=== PATIENT | female | born 1970 | race Caucasian/White ===

== ENCOUNTER 2018-09-08 16:19 | Observation (INO) | payer OTHER ==
[2018-09-08 16:19] VITALS: BMI 27.4
--- NOTE | 2018-09-08 16:35 | ED PDOC ---
Arrival/HPI - General Historian: Patient - History of Present Illness Narrative History of Present Illness (Text): 09/08/18 16:24 48 y/o female, pmh including hld, nkda, c/o lt. sided chest pain/palpitation/shortness of breath on and off x 1 week. Pt. stated that she has on and off palpitation x 1 week, chest pain with shortness of breath started today, radiating to the lt. upper extremity and back, no numbness or tingling, no headache or night sweat, no rash, no dizziness, no other medical or psychological complaints. Past Medical History - Provider Review Nursing Documentation Reviewed: Yes - Infectious Disease Hx of Infectious Diseases: None - Tetanus Immunization Tetanus Immunization: Unknown - Cardiac Hx Cardiac Disorders: Yes - Pulmonary Hx Respiratory Disorders: No - Neurological Hx Neurological Disorder: No - HEENT Hx HEENT Disorder: No - Renal Hx Renal Disorder: No - Endocrine/Metabolic Hx Endocrine Disorders: No - Hematological/Oncological Hx Blood Disorders: No - Integumentary Hx Dermatological Disorder: No - Musculoskeletal/Rheumatological Hx Musculoskeletal Disorders: No - Gastrointestinal Hx Gastrointestinal Disorders: No - Genitourinary/Gynecological Hx Genitourinary Disorders: No - Psychiatric Hx Psychophysiologic Disorder: No Hx Depression: No Hx Emotional Abuse: No Hx Physical Abuse: No Hx Substance Use: No - Surgical History Hx Cholecystectomy: Yes - Suicidal Assessment Feels Threatened In Home Enviroment: No Family/Social History - Physician Review Nursing Documentation Reviewed: Yes Family/Social History: Unknown Family HX Smoking Status: Never Smoked Hx Alcohol Use: No Hx Substance Use: No Hx Substance Use Treatment: No Allergies/Home Meds Allergies/Adverse Reactions: Allergies No Known Allergies Allergy (Verified 10/25/14 01:40) Review of Systems - Review of Systems Constitutional: absent: Fatigue, Fevers Eyes: absent: Vision Changes ENT: absent: Hearing Changes Respiratory: SOB, Cough. absent: Sputum Cardiovascular: Chest Pain Gastrointestinal: absent: Abdominal Pain, Nausea, Vomiting Musculoskeletal: absent: Arthralgias, Back Pain Skin: absent: Rash, Pruritis Neurological: absent: Headache, Dizziness Psychiatric: absent: Anxiety, Depression, Suicidal Ideation Physical Exam Vital Signs Reviewed: Yes Temperature: Afebrile Blood Pressure: Normal Pulse: Regular Respiratory Rate: Normal Appearance: Positive for: Well-Appearing, Non-Toxic, Comfortable Pain Distress: Mild Mental Status: Positive for: Alert and Oriented X 3 - Systems Exam Head: Present: Atraumatic, Normocephalic Pupils: Present: PERRL Extroacular Muscles: Present: EOMI Conjunctiva: Present: Normal Mouth: Present: Moist Mucous Membranes Neck: Present: Normal Range of Motion Respiratory/Chest: Present: Clear to Auscultation, Good Air Exchange. No: Respiratory Distress, Accessory Muscle Use, Wheezes, Decreased Breath Sounds, Rales, Retracting, Rhonchi, Tachypneic, Tender to Palpation Cardiovascular: Present: Regular Rate and Rhythm, Normal S1, S2. No: Murmurs Abdomen: No: Tenderness, Distention, Peritoneal Signs Back: Present: Normal Inspection. No: CVA Tenderness, Midline Tenderness, Paraspinal Tenderness Upper Extremity: Present: Normal Inspection. No: Cyanosis, Edema Lower Extremity: Present: Normal Inspection. No: Edema Neurological: Present: GCS=15, CN II-XII Intact, Speech Normal, Motor Func Grossly Intact, Gait Normal, Memory Normal Skin: Present: Warm, Dry, Normal Color. No: Rashes Psychiatric: Present: Alert, Oriented x 3, Normal Insight, Normal Concentration Medical Decision Making ED Course and Treatment: 09/08/18 16:45 -labs -ekg -CTA -satellite project site monitor -Observe and reassess 09/08/18 19:47 -EKG: NSR @ 96 BPM, no ST elevation or depression, no T wave inversion. -CTA No large central or segmental pulmonary embolus identified. -Labs are non-significant -Mg with normal limit -BNP within normal limit -TSH and T4 within normal limit -Trop is negative -UA show no UTI -UDS show no acute drug abuse -HEARTS score is Moderate -Pt. would need 24 hours trop, still has chest pain mildly with some relief from aspirin, morphine/oxygen/nitro ordered. -I explained to the patient and she agreed to be admitted. 09/08/18 20:05 -I spoke to the director global medical affairs and night admitting team Dr. Bejarano, discussed about the case/labs/radiology result, agreed to come to admit and follow up the care. - RAD Interpretation Radiology Orders: Date of service: 09/08/2018 CTA chest PE protocol Indication: Chest pain/SOB Technique: Contiguous axial images were obtained through the chest with intravenous contrast enhancement. Sagittal and coronal reconstructions were generated and reviewed. This CT exam was performed using 1 or more of the following dose reduction techniques: Automated exposure control, adjustment of the MAA and/or kV according to patient size, and/or use of iterative reconstruction technique. IV contrast: 100 mL Omnipaque 350 Radiation dose (DLP): 335.49 MGy-cm. Comparison: None available Findings: Visualized portions of the inferior thyroid gland appear unremarkable. The mediastinal and hilar vascular structures appear within normal limits. The heart appears within normal limits of size. No large central or segmental pulmonary embolus evident. No focal consolidation. No pleural effusion. No pneumothorax. No suspicious pulmonary nodules measuring greater than 5 mm. Cholecystectomy clips. Limited visualization of the included upper abdomen appear otherwise grossly unremarkable. No acute osseous abnormality is detected. Impression: No large central or segmental pulmonary embolus identified. Environmental Property Assessor: Radiologist - EKG Interpretation EKG Interpretation (Text): 09/08/18 16:47 -EKG: NSR @ 96 BPM, no ST elevation or depression, no T wave inversion. Interpreted by ED Physician: Yes Type: 12 lead EKG - PA / [employer]' ADVISORY SERVICE LIBRARIAN / Resident Statement MD/DO has reviewed & agrees with the documentation as recorded. Disposition/Present on Arrival - Present on Arrival Any Indicators Present on Arrival: No History of DVT/PE: No History of Uncontrolled Diabetes: No Urinary Catheter: No History of Decub. Ulcer: No History Surgical Site Infection Following: None - Disposition Have Diagnosis and Disposition been Completed?: Yes Diagnosis: Chest pain, Palpitation Disposition: HOSPITALIZED Disposition Time: 19:52 Patient Plan: Admission, Observation, Telemetry Patient Problems: Current Active Problems Problem Status Onset Chest pain Acute Palpitation Acute Condition: STABLE Discharge Instructions (ExitCare): Chest Pain (ED)
[2018-09-08 17:19] LABS: URINE BILIRUBIN NEGATIVE (NEGATIVE); URINE BLOOD NEGATIVE (NEGATIVE); URINE GLUCOSE (UA) NEGATIVE (NEGATIVE); URINE LEUKOCYTE ESTERASE NEGATIVE Leu/uL (NEGATIVE); URINE PROTEIN NEGATIVE mg/dL (<30 mg/dL); URINE UROBILINOGEN 0.2 E.U./dL (<1 E.U./dL)
[2018-09-08 17:20] LABS: URINE APPEARANCE CLEAR (CLEAR); URINE COLOR YELLOW (YELLOW)
[2018-09-08 17:22] LABS: BASO # 0.02 K/mm3 (0.0-2.0); BASO % 0.3 % (0.0-3.0); EOS # 0.1 (0.0-0.7); EOS % 1.4 % (1.5-5.0); GRAN # 3.33 (1.4-6.5); GRAN % 53.1 % (50.0-68.0); HEMOGLOBIN 13.2 g/dL (12.0-16.0); LYMPH # 2.3 (1.2-3.4); LYMPH % 36.8 % (22.0-35.0); MEAN CELL VOLUME 83.1 fl (80.0-105.0); MEAN CORPUSCULAR HEMOGLOBIN 28.2 pg (25.0-35.0); MEAN CORPUSCULAR HGB CONC 33.9 g/dl (31.0-37.0); MEAN PLATELET VOLUME 9.8 fl (7.0-11.0); MONO # 0.5 (0.1-0.6); MONO % 8.4 % (1.0-6.0); RBC 4.68 10^6/uL (3.5-6.1); RED CELL DISTRIBUTION WIDTH 12.8 % (11.5-14.5); WHITE BLOOD COUNT 6.3 10^3/uL (4.5-11.0)
[2018-09-08 17:26] LABS: ALB/GLOB RATIO 1.3 (1.1-1.8); ALT/SGPT 27 U/L (7-56); AST/SGOT 31 U/L (14-36); BLOOD UREA NITROGEN 10 mg/dL (7-21); CALCIUM 9.2 mg/dL (8.4-10.5); GFR NON-AFRICAN AMERICAN > 60
[2018-09-08 17:38] LABS: BARBITURATES, UR NEGATIVE (NEGATIVE); BENZODIAZEPINES, UR NEGATIVE (NEGATIVE); OPIATES, UR NEGATIVE (NEGATIVE); PHENCYCLIDINE, UR NEGATIVE (NEGATIVE)
[2018-09-08 17:38] LABS: B-TYPE NATRIURETIC PEPTIDE 22.4 pg/mL (0-450); TROPONIN I < 0.01 ng/mL
[2018-09-08 17:48] LABS: FREE T4 0.96 ng/dL (0.78-2.19)
[2018-09-08] MEDS ORDERED: Iohexol 300 100 ML IJ ONE (18:16)
--- NOTE | 2018-09-08 19:02 | CT ---
Date of service: 09/08/2018 CTA chest PE protocol Indication: Chest pain/SOB Technique: Contiguous axial images were obtained through the chest with intravenous contrast enhancement. Sagittal and coronal reconstructions were generated and reviewed. This CT exam was performed using 1 or more of the following dose reduction techniques: Automated exposure control, adjustment of the MAA and/or kV according to patient size, and/or use of iterative reconstruction technique. IV contrast: 100 mL Omnipaque 350 Radiation dose (DLP): 335.49 MGy-cm. Comparison: None available Findings: Visualized portions of the inferior thyroid gland appear unremarkable. The mediastinal and hilar vascular structures appear within normal limits. The heart appears within normal limits of size. No large central or segmental pulmonary embolus evident. No focal consolidation. No pleural effusion. No pneumothorax. No suspicious pulmonary nodules measuring greater than 5 mm. Cholecystectomy clips. Limited visualization of the included upper abdomen appear otherwise grossly unremarkable. No acute osseous abnormality is detected. Impression: No large central or segmental pulmonary embolus identified.
[2018-09-08] MEDS ORDERED: Morphine 2 mg/ml ISec IVP STA (19:51)
[2018-09-08 21:35] VITALS: O2SAT 98
[2018-09-09] MEDS: Sodium Chloride 0.9% 1,000 ML IV SCH ×3 (00:40→10:20)
--- NOTE | 2018-09-09 03:11 | CP.PCM.HP ---
<GregNarinder - Last Filed: 09/10/18 20:14> History of Present Illness - History of Present Illness History of Present Illness: Narinder Garza, PGY-1 Medicine H&P Note for Dr. Bejarano: CC: L sided chest pain x 7 days Pt is a 48 yo F with pmhx of HLD who presents to the ED for complaints of L sided chest pain that has been present for 7 days. She reports that about 7 days ago she was sleeping when she was woken up to feelings of chest pain and palpitations. She states that the chest pain was rated at a 6/10 and radiates to both of her shoulder and upper back and states that it does not worsen with exertion. She states that this is the first time this has ever happened to her. She states that these episodes last about 10-15 minutes. She states that she had bouts of nausea with the episodes of chest pain and palpitations. She states that these episodes are self-limiting. She denies any recent stress at work, emotional stress or anxiety. She also currently denies any fevers, chills, headaches, lightheadedness, dizziness, SOB, cough, leg swelling, abd pain, n/v, c/d, or dysuria. She admits to continued chest pain and palpitations. Pmhx: HLD Pshx: Heather 15 years ago Meds: Denies, stopped taking her statin 1 year ago All: Nkda Soc: Denies tobacco use, etoh or illicit drug use Fam: Non- contributory PMD: Denies Pharm: [facility] in [place] Present on Admission - Present on Admission Any Indicators Present on Admission: No Review of Systems - Review of Systems Review of Systems: 12 point ROS reviewed and negative except noted in HPI above. Past Patient History - Infectious Disease Hx of Infectious Diseases: None - Tetanus Immunizations Tetanus Immunization: Unknown - Past Social History Smoking Status: Never Smoked - CARDIAC Hx Hypercholesterolemia: Yes - PULMONARY Hx Respiratory Disorders: No - NEUROLOGICAL Hx Neurological Disorder: No - HEENT Hx HEENT Problems: No - RENAL Hx Chronic Kidney Disease: No - ENDOCRINE/METABOLIC Hx Endocrine Disorders: No - HEMATOLOGICAL/ONCOLOGICAL Hx Blood Disorders: No - INTEGUMENTARY Hx Dermatological Problems: No - MUSCULOSKELETAL/RHEUMATOLOGICAL Hx Falls: No - GASTROINTESTINAL Hx Gastrointestinal Disorders: No Hx Gall Bladder Disease: Yes (Cholecystectomy) - GENITOURINARY/GYNECOLOGICAL Hx Genitourinary Disorders: No - PSYCHIATRIC Hx Psychophysiologic Disorder: No Hx Depression: No Hx Emotional Abuse: No Hx Physical Abuse: No Hx Substance Use: No - SURGICAL HISTORY Hx Cholecystectomy: Yes - ANESTHESIA Hx Anesthesia: Yes Hx Anesthesia Reactions: No Hx Malignant Hyperthermia: No Meds Allergies/Adverse Reactions: Allergies Allergy/AdvReac Type Severity Reaction Status Date / Time No Known Allergies Allergy Verified 10/25/14 01:40 Physical Exam - Constitutional Appears: Well, Non-toxic, No Acute Distress - Head Exam Head Exam: ATRAUMATIC, NORMAL INSPECTION, NORMOCEPHALIC - Eye Exam Eye Exam: EOMI, Normal appearance, PERRL - Respiratory Exam Respiratory Exam: Clear to Auscultation Bilateral, NORMAL BREATHING PATTERN. absent: Accessory Muscle Use, Decreased Breath Sounds, Prolonged Expiratory Phase, Rales, Rhonchi, Wheezes, Respiratory Distress, Stridor - Cardiovascular Exam Cardiovascular Exam: RRR, +S1, +S2. absent: Gallop, Rubs, Systolic Murmur - GI/Abdominal Exam GI & Abdominal Exam: Normal Bowel Sounds, Soft. absent: Distended, Firm, Guarding, Tenderness - Extremities Exam Extremities exam: Positive for: full ROM, normal capillary refill, normal inspec tion, pedal pulses present. Negative for: pedal edema, tenderness - Back Exam Back exam: NORMAL INSPECTION. absent: CVA tenderness (L), CVA tenderness (R) - Neurological Exam Neurological exam: Alert, Oriented x3 - Psychiatric Exam Psychiatric exam: Normal Affect, Normal Mood - Skin Skin Exam: Dry, Intact, Warm Results - Vital Signs Recent Vital Signs: Last Vital Signs Temp 98.1 F 09/08/18 22:45 Pulse 69 09/09/18 01:35 Resp 20 09/09/18 00:08 BP 117/67 09/08/18 22:45 Pulse Ox 98 09/08/18 22:45 - Labs Result Diagrams: 09/08/18 16:45 09/08/18 16:45 Labs: Laboratory Results - last 24 hr 09/08/18 09/08/18 09/08/18 16:45 16:45 16:45 WBC 6.3 RBC 4.68 Hgb 13.2 Hct 38.9 MCV 83.1 MCH 28.2 MCHC 33.9 RDW 12.8 Plt Count 267 MPV 9.8 Gran % 53.1 Lymph % (Auto) 36.8 H [place] % (Auto) 8.4 H Eos % (Auto) 1.4 L Baso % (Auto) 0.3 Gran # 3.33 Lymph # (Auto) 2.3 [place] # (Auto) 0.5 Eos # (Auto) 0.1 Baso # (Auto) 0.02 D-Dimer, Quantitative Sodium 139 Potassium 3.7 Chloride 106 Carbon Dioxide 26 Anion Gap 11 BUN 10 Creatinine 0.7 Est GFR ( Amer) > 60 Est GFR (Non-Af Amer) > 60 Random Glucose 102 Calcium 9.2 Magnesium 1.9 Total Bilirubin 0.3 AST 31 ALT 27 Alkaline Phosphatase 59 Lactate Dehydrogenase 373 Total Creatine Kinase 55 Troponin I < 0.01 NT-Pro-B Natriuret Pep 22.4 Total Protein 7.1 Albumin 4.0 Globulin 3.1 Albumin/Globulin Ratio 1.3 Free T4 0.96 TSH 3rd Generation 2.87 Urine Color Urine Appearance Urine pH Ur Specific [place] Urine Protein Urine Glucose (UA) Urine Ketones Urine Blood Urine Nitrate Urine Bilirubin Urine Urobilinogen Ur Leukocyte Esterase Urine Opiates Screen Urine Methadone Screen Ur Barbiturates Screen Ur Phencyclidine Scrn Ur Amphetamines Screen U Benzodiazepines Scrn U Oth Cocaine Metabols U Cannabinoids Screen 09/08/18 09/08/18 09/08/18 16:45 16:50 16:50 WBC RBC Hgb Hct MCV MCH MCHC RDW Plt Count MPV Gran % Lymph % (Auto) [place] % (Auto) Eos % (Auto) Baso % (Auto) Gran # Lymph # (Auto) [place] # (Auto) Eos # (Auto) Baso # (Auto) D-Dimer, Quantitative < 200 Sodium Potassium Chloride Carbon Dioxide Anion Gap BUN Creatinine Est GFR ( Amer) Est GFR (Non-Af Amer) Random Glucose Calcium Magnesium Total Bilirubin AST ALT Alkaline Phosphatase Lactate Dehydrogenase Total Creatine Kinase Troponin I NT-Pro-B Natriuret Pep Total Protein Albumin Globulin Albumin/Globulin Ratio Free T4 TSH 3rd Generation Urine Color Yellow Urine Appearance Clear Urine pH 6.0 Ur Specific [place] >= 1.030 Urine Protein Negative Urine Glucose (UA) Negative Urine Ketones Negative Urine Blood Negative Urine Nitrate Negative Urine Bilirubin Negative Urine Urobilinogen 0.2 Ur Leukocyte Esterase Negative Urine Opiates Screen Negative Urine Methadone Screen Negative Ur Barbiturates Screen Negative Ur Phencyclidine Scrn Negative Ur Amphetamines Screen Negative U Benzodiazepines Scrn Negative U Oth Cocaine Metabols Negative U Cannabinoids Screen Negative 09/09/18 00:50 WBC RBC Hgb Hct MCV MCH MCHC RDW Plt Count MPV Gran % Lymph % (Auto) [place] % (Auto) Eos % (Auto) Baso % (Auto) Gran # Lymph # (Auto) [place] # (Auto) Eos # (Auto) Baso # (Auto) D-Dimer, Quantitative Sodium Potassium Chloride Carbon Dioxide Anion Gap BUN Creatinine Est GFR ( Amer) Est GFR (Non-Af Amer) Random Glucose Calcium Magnesium Total Bilirubin AST ALT Alkaline Phosphatase Lactate Dehydrogenase Total Creatine Kinase Troponin I < 0.01 NT-Pro-B Natriuret Pep Total Protein Albumin Globulin Albumin/Globulin Ratio Free T4 TSH 3rd Generation Urine Color Urine Appearance Urine pH Ur Specific [place] Urine Protein Urine Glucose (UA) Urine Ketones Urine Blood Urine Nitrate Urine Bilirubin Urine Urobilinogen Ur Leukocyte Esterase Urine Opiates Screen Urine Methadone Screen Ur Barbiturates Screen Ur Phencyclidine Scrn Ur Amphetamines Screen U Benzodiazepines Scrn U Oth Cocaine Metabols U Cannabinoids Screen Assessment & Plan - Assessment and Plan (Free Text) Assessment: Pt is a 48 yo F with pmhx of HLD who presents to the ED for complaints of L sided chest pain that has been present for 7 days. EKG shows NSR @ 96 bpm with no noted ST-T wave depressions or elevations. Plan: 1. CP r/o ACS: - Inital trops (-), trend trops x2 - F/u AM EKG - TSH and Free T4 wnl - f/u lipid profile - Utox (-) - D-dimer was <200 and CTA showed no PE - Cardio consulted - Dr. Salomon - 2D echo - NS @ 125/hr - HHD - Asa 81 qd - HbgA1c 2. Hx of HLD: - f/u lipid profile 3. PPx: - GI: Protonix 40qd - DVT: SCDs Case seen and discussed with Dr. Carlee Garza, PGY-1 <Black Bejarano - Last Filed: 09/10/18 20:44> Results - Vital Signs Recent Vital Signs: Last Vital Signs Temp 97.9 F 09/09/18 11:53 Pulse 81 09/09/18 11:53 Resp 20 09/09/18 11:53 BP 104/68 09/09/18 11:53 Pulse Ox 98 09/09/18 05:59 - Labs Result Diagrams: 09/09/18 06:30 09/09/18 06:30 Attending/Attestation - Attestation I have personally seen and examined this patient.: Yes I have fully participated in the care of the patient.: Yes I have reviewed all pertinent clinical information: Yes
[2018-09-09] MEDS ORDERED: Pantoprazole 40 mg EC Tab PO SCH (06:00)
[2018-09-09 07:18] LABS: BASO # 0.02 K/mm3 (0.0-2.0); BASO % 0.3 % (0.0-3.0); EOS # 0.1 (0.0-0.7); GRAN # 2.88 (1.4-6.5); GRAN % 45.4 % (50.0-68.0); HEMOGLOBIN 12.7 g/dL (12.0-16.0); LYMPH # 2.7 (1.2-3.4); LYMPH % 42.7 % (22.0-35.0); MEAN CELL VOLUME 84.1 fl (80.0-105.0); MEAN CORPUSCULAR HEMOGLOBIN 27.6 pg (25.0-35.0); MEAN CORPUSCULAR HGB CONC 32.8 g/dl (31.0-37.0); MEAN PLATELET VOLUME 9.8 fl (7.0-11.0); MONO # 0.6 (0.1-0.6); MONO % 9.6 % (1.0-6.0); RBC 4.6 10^6/uL (3.5-6.1); RED CELL DISTRIBUTION WIDTH 13.1 % (11.5-14.5); WHITE BLOOD COUNT 6.4 10^3/uL (4.5-11.0)
[2018-09-09 07:44] LABS: TROPONIN I < 0.01 ng/mL
[2018-09-09 08:08] LABS: ALB/GLOB RATIO 1.2 (1.1-1.8); ALBUMIN 3.5 g/dL (3.0-4.8); ALT/SGPT 27 U/L (7-56); AST/SGOT 28 U/L (14-36); BLOOD UREA NITROGEN 6 mg/dL (7-21); CALCIUM 8.5 mg/dL (8.4-10.5); GFR NON-AFRICAN AMERICAN > 60
[2018-09-09 08:47] LABS: HDL CHOLESTEROL 36 mg/dL (29-60)
[2018-09-09 08:58] LABS: LDL CHOLESTEROL 259 mg/dL (0-129)
--- NOTE | 2018-09-09 09:16 | CARD ---
APPROVED REPORT Date of service: 09/08/2018 EKG Measurement Heart [id number] <Conclusion> Normal sinus rhythm NSSTW changes Prolonged QTc
--- NOTE | 2018-09-09 09:39 | CARD ---
APPROVED REPORT Date of service: 09/09/2018 EKG Measurement Heart [id number] <Conclusion> Normal sinus rhythm NSSTW changes
[2018-09-09 11:54] VITALS: BP 104/68; PULSE 81; RESP 20; TEMP 97.9
--- NOTE | 2018-09-09 14:53 | CP.PCM.DIS ---
<Austin Edgar - Last Filed: 09/09/18 14:41> Provider - Provider Date of Admission: 09/08/18 20:04 Attending physician: Eduardo Pryor MD Consults: 09/09/18 00:32 Cardiology Consult Routine Comment: Consulting Provider: Juancho Salomon Consulting Physician: Juancho Salomon Reason for Consult: Chest pain r/o acs Time Spent in preparation of Discharge (in minutes): 45 Hospital Course - Lab Results Lab Results: Most Recent Lab Values WBC 6.4 10^3/uL (4.5-11.0) 09/09/18 06:30 RBC 4.60 10^6/uL (3.5-6.1) 09/09/18 06:30 Hgb 12.7 g/dL (12.0-16.0) 09/09/18 06:30 Hct 38.7 % (36.0-48.0) 09/09/18 06:30 MCV 84.1 fl (80.0-105.0) 09/09/18 06:30 MCH 27.6 pg (25.0-35.0) 09/09/18 06:30 MCHC 32.8 g/dl (31.0-37.0) 09/09/18 06:30 RDW 13.1 % (11.5-14.5) 09/09/18 06:30 Plt Count 261 10^3/uL (120.0-450.0) 09/09/18 06:30 MPV 9.8 fl (7.0-11.0) 09/09/18 06:30 Gran % 45.4 % (50.0-68.0) L 09/09/18 06:30 Lymph % (Auto) 42.7 % (22.0-35.0) H 09/09/18 06:30 [place] % (Auto) 9.6 % (1.0-6.0) H 09/09/18 06:30 Eos % (Auto) 2.0 % (1.5-5.0) 09/09/18 06:30 Baso % (Auto) 0.3 % (0.0-3.0) 09/09/18 06:30 Gran # 2.88 (1.4-6.5) 09/09/18 06:30 Lymph # (Auto) 2.7 (1.2-3.4) 09/09/18 06:30 [place] # (Auto) 0.6 (0.1-0.6) 09/09/18 06:30 Eos # (Auto) 0.1 (0.0-0.7) 09/09/18 06:30 Baso # (Auto) 0.02 K/mm3 (0.0-2.0) 09/09/18 06:30 D-Dimer, Quantitative < 200 ng/mlDDU (0-243) 09/08/18 16:45 Sodium 138 mmol/L (132-148) 09/09/18 06:30 Potassium 3.6 mmol/L (3.6-5.0) 09/09/18 06:30 Chloride 108 mmol/L (98-107) H 09/09/18 06:30 Carbon Dioxide 26 mmol/L (21-33) 09/09/18 06:30 Anion Gap 7 (10-20) L 09/09/18 06:30 BUN 6 mg/dL (7-21) L 09/09/18 06:30 Creatinine 0.7 mg/dl (0.7-1.2) 09/09/18 06:30 Est GFR ( Amer) > 60 09/09/18 06:30 Est GFR (Non-Af Amer) > 60 09/09/18 06:30 Random Glucose 89 mg/dL (70-110) 09/09/18 06:30 Hemoglobin A1c 4.9 % (4.2-6.5) 09/09/18 06:30 Calcium 8.5 mg/dL (8.4-10.5) 09/09/18 06:30 Phosphorus 3.0 mg/dL (2.5-4.5) 09/09/18 06:30 Magnesium 1.9 mg/dL (1.7-2.2) 09/09/18 06:30 Total Bilirubin 0.4 mg/dL (0.2-1.3) 09/09/18 06:30 AST 28 U/L (14-36) 09/09/18 06:30 ALT 27 U/L (7-56) 09/09/18 06:30 Alkaline Phosphatase 57 U/L (38-126) 09/09/18 06:30 Lactate Dehydrogenase 373 U/L (333-699) 09/08/18 16:45 Total Creatine Kinase 55 U/L (35-230) 09/08/18 16:45 Troponin I < 0.01 ng/mL 09/09/18 06:30 NT-Pro-B Natriuret Pep 22.4 pg/mL (0-450) 09/08/18 16:45 Total Protein 6.4 g/dL (5.8-8.3) 09/09/18 06:30 Albumin 3.5 g/dL (3.0-4.8) 09/09/18 06:30 Globulin 2.9 gm/dL 09/09/18 06:30 Albumin/Globulin Ratio 1.2 (1.1-1.8) 09/09/18 06:30 Triglycerides 205 mg/dL (35-160) H 09/09/18 06:30 Cholesterol 359 mg/dL (130-200) H 09/09/18 06:30 LDL Cholesterol Direct 259 mg/dL (0-129) H 09/09/18 06:30 HDL Cholesterol 36 mg/dL (29-60) 09/09/18 06:30 Free T4 0.96 ng/dL (0.78-2.19) 09/08/18 16:45 TSH 3rd Generation 2.87 mIU/mL (0.46-4.68) 09/08/18 16:45 Urine Color Yellow (YELLOW) 09/08/18 16:50 Urine Appearance Clear (CLEAR) 09/08/18 16:50 Urine pH 6.0 (4.7-8.0) 09/08/18 16:50 Ur Specific [place] >= 1.030 (1.005-1.035) 09/08/18 16:50 Urine Protein Negative mg/dL (<30 mg/dL) 09/08/18 16:50 Urine Glucose (UA) Negative mg/dL (NEGATIVE) 09/08/18 16:50 Urine Ketones Negative mg/dL (NEGATIVE) 09/08/18 16:50 Urine Blood Negative (NEGATIVE) 09/08/18 16:50 Urine Nitrate Negative (NEGATIVE) 09/08/18 16:50 Urine Bilirubin Negative (NEGATIVE) 09/08/18 16:50 Urine Urobilinogen 0.2 E.U./dL (<1 E.U./dL) 09/08/18 16:50 Ur Leukocyte Esterase Negative Juancarlos/uL (NEGATIVE) 09/08/18 16:50 Urine Opiates Screen Negative (NEGATIVE) 09/08/18 16:50 Urine Methadone Screen Negative (NEGATIVE) 09/08/18 16:50 Ur Barbiturates Screen Negative (NEGATIVE) 09/08/18 16:50 Ur Phencyclidine Scrn Negative (NEGATIVE) 09/08/18 16:50 Ur Amphetamines Screen Negative (NEGATIVE) 09/08/18 16:50 U Benzodiazepines Scrn Negative (NEGATIVE) 09/08/18 16:50 U Oth Cocaine Metabols Negative (NEGATIVE) 09/08/18 16:50 U Cannabinoids Screen Negative (NEGATIVE) 09/08/18 16:50 - Hospital Course Hospital Course: Patient is a 48 yo F with PMH of HLD presented to [facility] for left sided chest pain with radiation to left arm and palpitations for the past 7 days. Patient states that pain is intermittent and usually self-limiting. Patient also complaints of associated nausea and dyspnea on exertion. Patient was admitted for observation to rule out acute coronary syndrome. Troponins were negative x3, d-dimer was negative, EKG showed NSR, and CTA chest was negative for PE. EKG showed NSR at rate of 96. ASCVD risk was 2.3%. Cardiology was consulted who recommended outpatient stress test, Lipitor, and aspirin. As patient was hemodynamically stable and clear from cardiology standpoint, she was discharged Patient was advised to follow up with [facility] clinic and cardiology on discharge, she was also advised to take medications as prescribed. Patient acknowledged and agreed with plan. Discharge Exam - Head Exam Head Exam: ATRAUMATIC, NORMAL INSPECTION, NORMOCEPHALIC - Eye Exam Eye Exam: Normal appearance Pupil Exam: NORMAL ACCOMODATION - ENT Exam ENT Exam: Normal Exam - Neck Exam Neck exam: Normal Inspection - Respiratory Exam Respiratory Exam: Clear to PA & Lateral. absent: Rales, Rhonchi, Wheezes - Cardiovascular Exam Cardiovascular Exam: Tachycardia. absent: Diastolic murmur, Gallop, Rubs, Systolic Murmur - GI/Abdominal Exam GI & Abdominal Exam: Normal Bowel Sounds. absent: Distended, Guarding, Rebound - Extremities Exam Extremities exam: normal inspection - Neurological Exam Neurological exam: Alert, CN II-XII Intact, Oriented x3 - Psychiatric Exam Psychiatric exam: Normal Affect, Normal Mood - Skin Skin Exam: Dry, Intact, Normal Color, Warm Discharge Plan - Discharge Medications Prescriptions: RX: Aspirin [Ecotrin] 81 mg PO 0800 #30 tabec RX: Atorvastatin [Lipitor] 40 mg PO DIN #14 tab - Follow Up Plan Condition: STABLE Disposition: HOME/ ROUTINE Instructions: Chest Pain Additional Instructions: Please follow up with your primary care doctor, Dr. Higgins within 3-5 days, or if you wish, you can follow up at our [facility]. You have been provided with the information to make an appointment. You have been given a prescription for: 1. Aspirin (CARDIAC RISK REDUCTION) 81mg ONCE DAILY 2. Lipitor (Cholesterol medicine) 40mg ONCE DAILY for 14 days Recommend LOW FAT diet and EXERCISE to lower you cholesterol. Please follow up with Cardiology, Dr. Salomon, within 1 week for outpatient stress test. If your symptoms return, please go to the nearest emergency department. Referrals: [facility] [Outside] Juancho Salomon MD [Staff Provider] - <Rosy Christiansen R - Last Filed: 09/11/18 13:34> Provider - Provider Date of Admission: 09/08/18 20:04 Attending physician: Eduardo Pryor MD Consults: 09/09/18 00:32 Cardiology Consult Routine Comment: Consulting Provider: Juancho Salomon Consulting Physician: Juancho Salomon Reason for Consult: Chest pain r/o acs Hospital Course - Lab Results Lab Results: Most Recent Lab Values WBC 6.4 10^3/uL (4.5-11.0) 09/09/18 06:30 RBC 4.60 10^6/uL (3.5-6.1) 09/09/18 06:30 Hgb 12.7 g/dL (12.0-16.0) 09/09/18 06:30 Hct 38.7 % (36.0-48.0) 09/09/18 06:30 MCV 84.1 fl (80.0-105.0) 09/09/18 06:30 MCH 27.6 pg (25.0-35.0) 09/09/18 06:30 MCHC 32.8 g/dl (31.0-37.0) 09/09/18 06:30 RDW 13.1 % (11.5-14.5) 09/09/18 06:30 Plt Count 261 10^3/uL (120.0-450.0) 09/09/18 06:30 MPV 9.8 fl (7.0-11.0) 09/09/18 06:30 Gran % 45.4 % (50.0-68.0) L 09/09/18 06:30 Lymph % (Auto) 42.7 % (22.0-35.0) H 09/09/18 06:30 [place] % (Auto) 9.6 % (1.0-6.0) H 09/09/18 06:30 Eos % (Auto) 2.0 % (1.5-5.0) 09/09/18 06:30 Baso % (Auto) 0.3 % (0.0-3.0) 09/09/18 06:30 Gran # 2.88 (1.4-6.5) 09/09/18 06:30 Lymph # (Auto) 2.7 (1.2-3.4) 09/09/18 06:30 [place] # (Auto) 0.6 (0.1-0.6) 09/09/18 06:30 Eos # (Auto) 0.1 (0.0-0.7) 09/09/18 06:30 Baso # (Auto) 0.02 K/mm3 (0.0-2.0) 09/09/18 06:30 D-Dimer, Quantitative < 200 ng/mlDDU (0-243) 09/08/18 16:45 Sodium 138 mmol/L (132-148) 09/09/18 06:30 Potassium 3.6 mmol/L (3.6-5.0) 09/09/18 06:30 Chloride 108 mmol/L (98-107) H 09/09/18 06:30 Carbon Dioxide 26 mmol/L (21-33) 09/09/18 06:30 Anion Gap 7 (10-20) L 09/09/18 06:30 BUN 6 mg/dL (7-21) L 09/09/18 06:30 Creatinine 0.7 mg/dl (0.7-1.2) 09/09/18 06:30 Est GFR ( Amer) > 60 12 06:30 Est GFR (Non-Af Amer) > 60 09/09/18 06:30 Random Glucose 89 mg/dL (70-110) 09/09/18 06:30 Hemoglobin A1c 4.9 % (4.2-6.5) 09/09/18 06:30 Calcium 8.5 mg/dL (8.4-10.5) 09/09/18 06:30 Phosphorus 3.0 mg/dL (2.5-4.5) 09/09/18 06:30 Magnesium 1.9 mg/dL (1.7-2.2) 09/09/18 06:30 Total Bilirubin 0.4 mg/dL (0.2-1.3) 09/09/18 06:30 AST 28 U/L (14-36) 09/09/18 06:30 ALT 27 U/L (7-56) 09/09/18 06:30 Alkaline Phosphatase 57 U/L (38-126) 09/09/18 06:30 Lactate Dehydrogenase 373 U/L (333-699) 09/08/18 16:45 Total Creatine Kinase 55 U/L (35-230) 09/08/18 16:45 Troponin I < 0.01 ng/mL 09/09/18 06:30 NT-Pro-B Natriuret Pep 22.4 pg/mL (0-450) 09/08/18 16:45 Total Protein 6.4 g/dL (5.8-8.3) 09/09/18 06:30 Albumin 3.5 g/dL (3.0-4.8) 09/09/18 06:30 Globulin 2.9 gm/dL 09/09/18 06:30 Albumin/Globulin Ratio 1.2 (1.1-1.8) 09/09/18 06:30 Triglycerides 205 mg/dL (35-160) H 09/09/18 06:30 Cholesterol 359 mg/dL (130-200) H 09/09/18 06:30 LDL Cholesterol Direct 259 mg/dL (0-129) H 09/09/18 06:30 HDL Cholesterol 36 mg/dL (29-60) 09/09/18 06:30 Free T4 0.96 ng/dL (0.78-2.19) 09/08/18 16:45 TSH 3rd Generation 2.87 mIU/mL (0.46-4.68) 09/08/18 16:45 Urine Color Yellow (YELLOW) 09/08/18 16:50 Urine Appearance Clear (CLEAR) 09/08/18 16:50 Urine pH 6.0 (4.7-8.0) 09/08/18 16:50 Ur Specific [place] >= 1.030 (1.005-1.035) 09/08/18 16:50 Urine Protein Negative mg/dL (<30 mg/dL) 09/08/18 16:50 Urine Glucose (UA) Negative mg/dL (NEGATIVE) 09/08/18 16:50 Urine Ketones Negative mg/dL (NEGATIVE) 09/08/18 16:50 Urine Blood Negative (NEGATIVE) 09/08/18 16:50 Urine Nitrate Negative (NEGATIVE) 09/08/18 16:50 Urine Bilirubin Negative (NEGATIVE) 09/08/18 16:50 Urine Urobilinogen 0.2 E.U./dL (<1 E.U./dL) 09/08/18 16:50 Ur Leukocyte Esterase Negative Juancarlos/uL (NEGATIVE) 09/08/18 16:50 Urine Opiates Screen Negative (NEGATIVE) 09/08/18 16:50 Urine Methadone Screen Negative (NEGATIVE) 09/08/18 16:50 Ur Barbiturates Screen Negative (NEGATIVE) 09/08/18 16:50 Ur Phencyclidine Scrn Negative (NEGATIVE) 09/08/18 16:50 Ur Amphetamines Screen Negative (NEGATIVE) 09/08/18 16:50 U Benzodiazepines Scrn Negative (NEGATIVE) 09/08/18 16:50 U Oth Cocaine Metabols Negative (NEGATIVE) 09/08/18 16:50 U Cannabinoids Screen Negative (NEGATIVE) 09/08/18 16:50 Attending/Attestation - Attestation I have personally seen and examined this patient.: Yes I have fully participated in the care of the patient.: Yes I have reviewed all pertinent clinical information, including history, physical exam and plan: Yes Notes (Text): Please note this dc summary is for 09/09/18 Patient seen and examined by me with resident 10:20 AM and prior to discharge on 09/09/18. Case including discharge plan discussed with resident. Agree with above with following additions/corrections. She is a 48-year-old female with past medical history significant for hyperlipidemia the presented to the emergency room with left-sided chest pain that was present for 7 days. Please see H&P for full details. Patient was admitted with chest pain and hyperlipidemia. ACS was ruled out. Patient was seen by route driver salesperson. D-Dimer was < 200. CTA chest per radiologist showed no large central or segmental pulmonary embolus identified. Troponins were within normal limits. TSH was 2.87, Free T4 0.96. Total cholesterol is 359. LDL was 259. Triglycerides were 205. BNP was 22.4. Patient with no leukocytosis. Remained afebrile. 2d Echo per route driver salesperson showed left ventricle is normal size, normal left ventricular wall thickness, left ventricular function is normal, LVEF 55%. Pain was reproducible. Patient was feeling better and was cleared for discharge by cardiology on ASA and Lipitor. Patient was discharged home. On day of discharge, patient stated she was feeling much better. Chest pain improved. No shortness of breath or palpitations. Pain reproducible. No nausea, vomiting, or abdominal pain. No hedache or dizziness. No fevers or chills. No palpitations. No dysuria. No diarrhea or constipation. Physical exam: General: Awake and alert lying in bed in no acute distress HEENT: Normocephalic, atraumatic. Extraocular muscles intact, pupils equal and reactive, no scleral icterus. Oropharynx is pink and moist. No pharyngeal exudate or erythema appreciated. Neck is supple.Hearing grossly intact. Ears and nose externally unremarkable. Cardiovascular: Normal rhythm. Normal S1 and S2. No murmurs, rubs, or gallops appreciated Pulmonary: Normal respiratory effort. No rhonchi, rales, or wheezing appreciated. Gastrointestinal: Soft, nondistended. Nontender. Positive bowel sounds all 4 quadrants. No guarding. Musculoskeletal: Normal range of motion all extremities. No calf tenderness. No edema appreciated. No CVA tenderness. Central nervous system: AAO X 3, CN 2-12 grossly intact Dermatologic: Skin warm and dry. Please see chart for full details. Follow up instructions: Patient to follow-up with her primary care doctor within 3-5 days. Patient to practice low fat diet and exercise. Patient to follow-up with route driver salesperson within 1 week. Patient take aspirin and Lipitor as prescribed. Patient to get any refills needed for medications from primary care doctor. All instructions explained to the patient in detail. Patient both understands and agrees to all instructions. Written instructions also given. Time spent in discharging the patient including chart review, medication reconciliation, discussion with the patient, medical device engineer, consultants, and nursing staff was approximately 35 minutes.
--- NOTE | 2018-09-09 14:56 | CON ---
DATE: 09/09/2018 CARDIOLOGY CONSULTATION REASON FOR CONSULTATION: Chest pain and palpitations. HISTORY OF PRESENT ILLNESS: The patient is a 48-year-old [place] female from [facility], who has a history of hyperlipidemia, presented with chest pain and palpitations associated with shortness of breath with radiation to the left shoulder. The patient is unaware of any prior cardiac history. The patient denies any dizziness or syncope. The patient was noted on the monitor to be in sinus tachycardia when she is ambulatory. No reported arrhythmia otherwise. SOCIAL HISTORY: Nonsmoker, nondrinker. MEDICATIONS: The patient is currently on aspirin 81 mg once a day, Lipitor was started at 40 mg once a day, Protonix 40 mg once a day, and normal saline 600 mL/hour. REVIEW OF SYSTEMS: No recent vomiting or diarrhea. No fever or chills. PHYSICAL EXAMINATION: GENERAL: The patient is a middle-aged female, who does not appear to be in any distress. VITAL SIGNS: Blood pressure 97/66, heart rate 78, temperature 98.2, respirations 22. HEENT: Normocephalic. NECK: No JVD. CHEST: Clear. HEART: S1 and S2 regular. ABDOMEN: Soft. EXTREMITIES: No edema. LABORATORY DATA: SMA-7 on admission is within normal limit. Three sets of troponins are negative. Triglycerides 105, total cholesterol is 359, LDL cholesterol is 259. elevated. TSH level is within normal limits. D-dimer is below 200. Urine drug screen is negative. EKG revealed normal sinus rhythm at a rate of [address]-T wave changes. Echocardiographic study was reviewed and revealed normal left ventricular systolic function. CT angio revealed no large central or segmental pulmonary embolus. ASSESSMENT: 1. Periods of palpitation and chest discomfort. 2. Hyperlipidemia. RECOMMENDATIONS: Continue aspirin 81 mg once a day, Lipitor 40 mg once a day. Optimize intravenous hydration, consider initiating beta-blockers once systolic blood pressure is above 120. A treadmill stress test is indicated as an outpatient, and the patient was made fully informed of it. Juancho Salomon MD
--- NOTE | 2018-09-10 08:58 | CARD ---
APPROVED REPORT Date of service: 09/09/2018 EXAM: Two-dimensional and M-mode echocardiogram with Doppler and color Doppler. Other Information Quality : GoodRhythm : INDICATION Chest Pain 2D DIMENSIONS Left Atrium (2D)3.5 (1.6-4.0cm)IVSd0.9 (0.7-1.1cm) LVDd4.4 (3.9-5.9cm)PWd0.8 (0.7-1.1cm) LVDs3.2 (2.5-4.0cm)FS (%) 27.5 % LVEF (%)55.0 (>50%) M-Mode DIMENSIONS Aortic Root2.50 (2.2-3.7cm)Aortic Cusp Exc.1.70 (1.5-2.0cm) Aortic Valve AoV Peak Lgijjvdc168.0cm/s Mitral Valve MV E Nzccvfgh30.0cm/sMV A Pgakhwlr98.1cm/sE/A ratio1.1 TDI Lateral E' Peak V18.90cm/sMedial E' Peak V8.68cm/sE/Lateral E'4.1 E/Medial E'8.9 Pulmonary Valve PV Peak Xzzphkdo97.2cm/sPV Peak Grad.2mmHg Tricuspid Valve TR Peak Ufycwcaz772ji/sRAP [id number] Peak Gr.22mmHg [id number] LEFT VENTRICLE The left ventricle is normal size. There is normal left ventricular wall thickness. The left ventricular function is normal. The left ventricular ejection fraction is within the normal range. There is normal LV segmental wall motion. RIGHT VENTRICLE The right ventricle is normal size. ATRIA The left atrium size is normal. The right atrium size is normal. The interatrial septum is intact with no evidence for an atrial septal defect. AORTIC VALVE The aortic valve is normal in structure. MITRAL VALVE The mitral valve is normal in structure. Mitral regurgitation is trace. TRICUSPID VALVE The tricuspid valve is normal in structure. There is trace to mild tricuspid regurgitation. PULMONIC VALVE The pulmonary valve is normal in structure. GREAT VESSELS The aortic root is normal in size. PERICARDIAL EFFUSION There is no pericardial effusion. <Conclusion> The left ventricle is normal size. There is normal left ventricular wall thickness. The left ventricular function is normal.
== END 2018-09-09 16:28 | disposition home or self-care (01) ==
LOC: ED 16:19 → ERH 20:04 → 2RNO 22:45
PROVIDERS: ADMIT Internal Medicine; ATTEND Internal Medicine
DX: R07.89 Other chest pain (principal); R00.2 Palpitations; E78.00 Pure hypercholesterolemia, unspecified; E78.5 Hyperlipidemia, unspecified
CPT/HCPCS: 36415; 71275; 80053; 80061; 80324; 80345; 80346; 80349; 80353; 80358; 80361; 81003; 82550; 83036; 83615; 83735; 83880; 83992; 84100; 84439; 84443; 84484; 85025; 85378; 93005; 93306; 96374; 99285; G0378; J2270; J7030; Q9967